=== PATIENT | female | born 1960 | race Caucasian/White ===

== ENCOUNTER 2021-11-24 13:48 | Inpatient (IN) | payer SELFPAY ==
[2021-11-24] VITALS (9 sets, daily range): BP systolic 114–161; BP diastolic 63–92; PULSE 79–94; RESP 16–26; TEMP 36.1–36.9; O2SAT 92–98; BMI 27.1
--- NOTE | ~2021-11-24 | CT_ITS ---
EXAMINATION: CTA chest PE protocol DATE: 11/26/2021 12:54 INDICATION: Shortness of breath TECHNIQUE: Computed tomography angiography (CTA) of the chest was performed with 100 mL Omnipaque-350 intravenous contrast timed to evaluate the pulmonary arteries. Coronal maximum intensity projection 3D-reconstructions were created by the technologist. The dose-length product (DLP) was 307.75 mGy-cm. Automated exposure control and iterative reconstruction technique were employed. COMPARISON: 11/24/2021 FINDINGS: The pulmonary arteries are well-opacified. No pulmonary embolism is identified. There is a small right pleural effusion and a small to moderate-sized left pleural effusion. Patchy airspace opa cities are present in the right lower lobe. There is minimal passive atelectasis in the left lung bas e. A stable 12 mm nodule is present in the right upper lobe. There is no pneumothorax. No pathologica lly enlarged thoracic lymph nodes are identified. The heart size is normal. There is a small sliding hiatal hernia. There is mild thoracic spondylosis. IMPRESSION: 1. No pulmonary embolus identified. 2. Small right and moderate-sized left pleural effusions. 3. Right lower lobe airspace opacity, consistent with pneumonia. 4. Indeterminate right upper lobe nodule. Follow-up CT in three months is recommended. Reviewed, dictated and finalized at location A. IMPRESSION: 1. No pulmonary embolus identified. 2. Small right and moderate-sized left pleural effusions. 3. Right lower lobe airspace opacity, consistent with pneumonia. 4. Indeterminate right upper lobe nodule. Follow-up CT in three months is recom mended.
--- NOTE | ~2021-11-24 | XR_ITS ---
[id number] 11/25/2021 12:18 Indication: Post thoracentesis. Procedure: 2 view chest Comparison: 11/24/2021 Findings: Bilateral pleural effusions, left greater than right. Bibasilar airspace disease may repres ent atelectasis or pneumonia. No pneumothorax identified post procedure. No edema. Impression: 1: No pneumothorax post procedure. 2: Bilateral pleural effusions, left greater than right. 3: Bibasilar infiltrates, atelectasis versus pneumonia. Reviewed, dictated and finalized at location B. Impression: 1: No pneumothorax post procedure. 2: Bilateral pleural effusions, left greater than right. 3: Bibasilar infiltrates, atelectasis versus pneumonia.
--- NOTE | ~2021-11-24 | US_ITS ---
EXAMINATION: US thoracentesis DATE: 11/25/2021 12:25 INDICATION: pleural effusions TECHNIQUE: The procedure and its risks and benefits were discussed with the patient. Potential risks discussed included bleeding, infection, and pneumothorax. The patient understood the risks and agreed to proceed. The skin overlying the posterior inferior right hemithorax was prepped and draped in meryl rile fashion. 1% lidocaine was used for local anesthesia. Under ultrasound guidance, a 5 Fr catheter with trochar was advanced into the right pleural effusion. Fluid was aspirated. The catheter was deanne haile, and a dressing was applied. There were no immediate complications. FINDINGS: Ultrasound images demonstrate a small right pleural effusion and the catheter within the fluid. IMPRESSION: 1. Successful ultrasound-guided thoracentesis yielding 1000 mL of clear yellow fluid. Reviewed, dictated and finalized at location A.
--- NOTE | ~2021-11-24 | XR_ITS ---
XR chest 1V portable 11/24/2021 14:34 Indication: Shortness of breath Procedure: AP portable chest Comparison: No prior studies for comparison. Findings: Moderate bilateral pleural effusions. Bibasilar airspace disease may represent edema or pne umonia. No pneumothorax. No acute osseous abnormality. Impression: 1: Bibasilar airspace disease, edema versus pneumonia. 2: Moderate pleural effusions. Reviewed, dictated and finalized at location B. Impression: 1: Bibasilar airspace disease, edema versus pneumonia. 2: Moderate pleural effusions.
--- NOTE | ~2021-11-24 | CT_ITS ---
EXAMINATION:CT diagnostic chest wo con DATE: 11/24/2021 15:13 INDICATION: Shortness of breath. TECHNIQUE: Computed tomography (CT) of the chest was performed without intravenous contrast. Automate d exposure control and iterative reconstruction technique were employed. The dose-length product (DLP ) was 973.85 mGy-cm. COMPARISON: Chest single view 11/24/2021 FINDINGS: There is mild emphysema. There is mild scarring at the lung apices. There are moderate-size d pleural effusions. There are airspace opacities in the inferior lungs. There is a 12 mm nodule in r ight upper lobe. There are a few scattered lung nodules measuring up to 4 mm. The heart size is cricket l. No pericardial effusion. There is a small sliding hiatal hernia. Delayed bilateral rib fractures. There is mild thoracic spondylosis. IMPRESSION: 1. 12 mm pulmonary nodule, which may be infection or malignancy. Noncontrast low-dose chest CT is rec ommended in 3 months. 2. Moderate-sized pleural effusions. 3. Mild emphysema. 4. Small sliding hiatal hernia. Reviewed, dictated and finalized at location A. IMPRESSION: 1. 12 mm pulmonary nodule, which may be infection or malignancy. Noncontrast lo w-dose chest CT is recommended in 3 months. 2. Moderate-sized pleural effusions. 3. Mild emphysema. 4. Small sliding hiatal hernia.
--- NOTE | ~2021-11-24 | XR_ITS ---
EXAMINATION: XR chest 2V DATE: 11/26/2021 08:49 INDICATION: Bilateral pleural effusions TECHNIQUE: PA and lateral views of the chest are obtained. COMPARISON: 11/24/2021 FINDINGS: Small pleural effusions persist with interval decrease on the right postthoracentesis. Ther e are airspace opacities of the lung bases. No pneumothorax is identified. The cardiomediastinal silh ouette is normal. The visualized osseous structures are unremarkable. IMPRESSION: 1. Small pleural effusions with decrease on the right postthoracentesis. 2. Airspace opacities of the lung bases, likely atelectasis. Reviewed, dictated and finalized at location A.
--- NOTE | 2021-11-24 14:19 | ECG_ITS ---
Measurements Intervals [place] Rate: 82 P: 6 ME: 134 QRS: 40 QRSD: 72 T: 31 QT: 360 QTc: 422 Interpretive Statements SINUS RHYTHM NORMAL ECG NO PREVIOUS ECG AVAILABLE FOR COMPARISON Electronically Signed On 11-25-2021 8:45:05 CDT by Sarthak Kingston M.D.
--- NOTE | 2021-11-24 14:28 | ED.SOB ---
HPI - SOB/Dyspnea General Chief Complaint: Shortness of Breath/Dyspnea Stated Complaint: Shortness of Breath Time Seen by Provider: 11/24/21 13:55 Source: RN notes reviewed History of Present Illness HPI Narrative: Patient presents emergency room from home for shortness of breath. Patient states he has been feeling short of breath for the past 2 days with increasing symptoms states has been associated with a cough this been nonproductive. She denies any fevers or chills chest pain abdominal pain nausea vomiting or any other symptoms. Patient states she does have a history of tobacco use and does smoke daily Related Data Allergies Allergy/AdvReac Type Severity Reaction Status Date / Time No Known Allergies Allergy Verified 11/24/21 14:10 Review of Systems Review of Systems: Gen.: Denies fevers or chills Eyes: Denies eye pain or visual change ENT: Denies congestion Respiratory: See HPI CV: Denies chest pain or palpitations GI: Denies abdominal pain nausea, emesis or diarrhea Musculoskeletal: Denies back pain or muscle pain Neuro: Denies numbness, tingling, weakness or focal weakness Skin: Denies rash Except as documented, all other systems reviewed and negative [facility] Past Medical History Medical History (Updated 11/24/21 @ 15:45 by Nitesh Land DO) Patient denies significant medical history Social History Social History (Updated 11/24/21 @ 15:43 by Nitesh Land DO) Smoking status: Current every day smoker Exam Narrative: APPEARANCE: No acute distress, nontoxic, resting in bed EYES: EOMI HEENT: Normocephalic, atraumatic, OMM RESPIRATORY: No respiratory distress wheezing throughout the bilateral lung [place] with decreased breath sounds in the bases CARDIOVASCULAR: Regular rate and rhythm without murmurs rubs or gallops. ABDOMINAL: Soft, nontender, nondistended, no rebound or guarding MUSCULOSKELETAl: Moves all extremities. No clubbing, cyanosis or edema. NEURO: Awake and alert. Following commands, speech normal, no focal deficits SKIN:: Warm, dry. No rashes lesions or abrasions PSYCHIATRIC: Normal affect/mood, Course Course Emergency Course: Discussed with ANASTASIYA Olson for Dr. Khan presentation and work-up. Agrees with admission at this time Discussed with patient and family results of workup and diagnosis. Discussed need for admission. Patient and family understand and agree to current treatment plan discussed with patient CT showing pulmonary nodule with need for follow-up as well as pleural effusions Vital Signs Vital signs: Vital Signs Temperature 98.5 F 11/24/21 13:59 Pulse Rate 92 11/24/21 13:59 Respiratory Rate 26 H 11/24/21 13:59 Blood Pressure 148/92 H 11/24/21 13:59 Pulse Oximetry 97 11/24/21 13:59 Oxygen Delivery Room Air 11/24/21 13:59 Temperature 98.5 F 11/24/21 13:59 Pulse Rate 93 11/24/21 15:19 Respiratory Rate 24 H 11/24/21 15:19 Blood Pressure 161/75 H 11/24/21 15:19 Pulse Oximetry 97 11/24/21 15:19 Oxygen Delivery Room Air 11/24/21 14:06 MDM - SOB/Dyspnea Lab Data Result diagrams: 11/24/21 14:24 11/24/21 14:24 Labs: Lab Results 11/24/21 11/24/21 11/24/21 Range/Units 14:24 14:24 14:24 WBC 6.6 (4.5-10.0) K/mm3 RBC 4.39 (4.2-5.4) M/mm3 Hgb 11.4 L (12.0-15.0) g/dL Hct 36.1 L (37.0-47.0) % MCV 82.2 (80-100) fl MCH 26.0 (26-34) pg MCHC 31.6 L (32-36) g/dl RDW 13.5 (11.5-14.5) % Plt Count 348 (150-375) k/mm3 MPV 9.4 (7.4-10.4) fl Immature Gran % (Auto) 0.3 (0-0.5) % Neut % (Auto) 68.4 (45.5-73.1) % Lymph % (Auto) 12.6 L (18.3-44.2) % [place] % (Auto) 10.2 H (2.6-8.5) % Eos % (Auto) 7.7 H (0-4.4) % Baso % (Auto) 0.8 (0.2-1.2) % Lymph # (Auto) 0.83 L (0.9-3.2) K/mm3 [place] # (Auto) 0.7 H (0.1-0.6) K/mm3 Eos # (Auto) 0.5 H (0-0.3) K/mm3 Baso # (Auto) 0.1 (0.0-0.1) K/mm3 Abs Immat Gran (auto) 0.02
[2021-11-24] MEDS: ALBUTEROL SULFATE NEB 2.5 MG/3 ML INH 5 MG INHALATION ×2 (14:30→20:13)
[2021-11-24] MEDS: IPRATROPIUM BR 0.02% INH SOLN 0.5 MG/2.5 ML VIAL INHALATION ×2 (14:30→20:13)
[2021-11-24 14:32] LABS: Basophils Absolute Auto 0.1 K/mm3 (0.0-0.1); Basophils Percent Auto 0.8 % (0.2-1.2); Eosinophils Absolute Auto 0.5 K/mm3 (0-0.3); Eosinophils Percent Auto 7.7 % (0-4.4); Hematocrit 36.1 % (37.0-47.0); Hemoglobin 11.4 g/dL (12.0-15.0); Immature Granulocyte Absolute 0.02 K/mm3 (0.00-0.031); Immature Granulocyte Percent A 0.3 % (0-0.5); Lymphocytes Absolute Auto 0.83 K/mm3 (0.9-3.2); Lymphocytes Percent Auto 12.6 % (18.3-44.2); Mean Corpuscular HGB Conc 31.6 g/dl (32-36); Mean Corpuscular Volume 82.2 fl (80-100); Mean Platelet Volume 9.4 fl (7.4-10.4); Monocytes Absolute Auto 0.7 K/mm3 (0.1-0.6); Monocytes Percent Auto 10.2 % (2.6-8.5); Neutrophils Absolute Auto 4.5 K/mm3 (1.3-6.7); Neutrophils Percent Auto 68.4 % (45.5-73.1); Platelet Count Result 348 k/mm3 (150-375); Red Blood Count 4.39 M/mm3 (4.2-5.4); Red Cell Distribution Width 13.5 % (11.5-14.5); White Blood Count 6.6 K/mm3 (4.5-10.0)
[2021-11-24] MEDS: methylPREDNISolone SOD SUCC 125 MG VIAL IV PUSH (14:33)
[2021-11-24 14:43] LABS: INR 1.2; Prothrombin Time 14.4 Seconds (11.1-14.7)
[2021-11-24 14:44] LABS: Alanine Aminotransferase 12 U/L (6-35); Albumin Level 3.6 g/dL (3.5-5.1); Alkaline Phosphatase 121 U/L (38-126); Anion Gap 9 mmol/L (8-16); Aspartate Amino Transferase 19 U/L (14-36); Bilirubin,Total 0.4 mg/dL (0.2-1.3); Blood Urea Nitrogen 13 mg/dL (7-17); Calcium 8.7 mg/dL (8.4-10.2); Carbon Dioxide 26 mmol/L (22-30); Chloride 100 mmol/L (98-107); Estimated CRCL calculation 72 ml/min; Estimated Glomerular Filt Rate > 60; Glucose 134 mg/dL (65-110); Partial Thromboplastin Time 33.7 SECONDS (22.3-36.8); Potassium 3.3 mmol/L (3.4-5.0); Sodium 135 mmol/L (137-145)
[2021-11-24 14:56] LABS: NT Pro B Type Natriuretic Pept 154 pg/mL (5-100); Troponin I < 0.012 ng/mL (0.000-0.034)
[2021-11-24 15:10] LABS: SARS-CoV-2 RNA PCR Negative
[2021-11-24] MEDS: POTASSIUM CHLORIDE 20 MEQ TABLET PO (15:17)
--- NOTE | 2021-11-24 16:27 | PM.IMHP ---
H&P: HPI History of Present Illness Date/Time: 11/24/21 16:27 Chief Complaint: SHORTNESS OF BREATH Narrative: THIS IS A 61-YEAR-OLD FEMALE PATIENT WHO CAME TO THE EMERGENCY ROOM WITH COMPLAINTS OF SHORTNESS OF BREATH. THE PATIENT STATED SHE HAS BEEN FEELING SHORT OF BREATH FOR THE LAST 2 DAYS. SHE DENIES ANY FEVER CHILLS. THE PATIENT IS A SMOKER AND STILL CONTINUES TO SMOKE APPROXIMATELY One pack of CIGARETTES A DAY. SHE DENIES ANY FEVER OR CHILLS OR ANY NAUSEA VOMITING OR DIARRHEA. H&H is 11.4 and 36.1. Sodium is 135 and potassium is 3.3. COVID is negative. Chest x-ray was read as the following: Bibasilar airspace disease, edema versus pneumonia. 2:? Moderate pleural effusions. chest CT was read as the following 1. 12 mm pulmonary nodule, which may be infection or malignancy. Noncontrast low-dose chest CT is recommended in 3 months. 2. Moderate-sized pleural effusions. 3. Mild emphysema. 4. Small sliding hiatal hernia. the patient was given Solu-Medrol, neb treatment potassium azithromycin Rocephin. The patient is on room air and she stated she started to feel better what she got a nebulizer treatment. The patient is being admitted to observation status on the date of service of 11/24/2021. Review of Systems Review of Systems: See history of present illness All systems reviewed & are unremarkable except as noted in HPI and below Constitutional: Constitutional: Reports as per HPI and Reports no additional constitutional complaints Eyes: Eyes: Reports as per HPI and Reports no additional eye complaints ENT: Reports system reviewed and no additional complaints, except as documented and Reports Normal hearing present Cardiovascular: Cardiovascular: Reports no additional cardiovascular complaints Respiratory: Respiratory: Reports no additional respiratory complaints and Reports no additional respiratory complaints Gastrointestinal: Gastrointestinal: Reports as per HPI and Reports no additional gastrointestinal complaints Musculoskeletal: Musculoskeletal: Reports no additional musculoskeletal complaints Integumentary/Breasts: Skin/Breast: Reports system reviewed and no additional complaints, except as docu and Reports as per HPI Neurologic: Reports system reviewed and no additional complaints, except as documented, Reports as per HPI and Reports Normal hearing present Psychiatric: Psychiatric: Reports no additional psychiatric complaints and Reports as per HPI Endocrine: Endocrine: Reports no additional endocrine complaints Hematologic/Lymphatic: Hematologic/Lymphatic: Reports no additional hematologic/lymphatic complaints Allergic/Immunologic: Allergic/Immunologic: Reports no additional allergic/immunologic complaints [facility] Past Medical History Medical History (Updated 11/24/21 @ 20:56 by Whitney Galaviz NP) Patient denies significant medical history Tobacco abuse Surgical History Surgical History (Updated 11/24/21 @ 16:29 by Whitney Galaviz NP) H/O tubal ligation Family History Family History Mother Hypertension Carcinoma of colon Father Acute myocardial infarction Sibling Cancer Social History Social History (Updated 11/24/21 @ 20:21 by Whitney Galaviz NP) Social History: the patient has 3 childrenc. her son lives with her. she is single and works for [employer]. she was smoking a pack per day. She does not have a living will or durable power estate attorney for healthcare. She denies any alcohol marijuana or drugs. Code status full code Smoking packs per day: 1 Smoking cigarettes per day: 20.0 Smoking status: Current every day smoker Tobacco type: cigarettes Alcohol intake: never Substance use: never Spiritual care concerns: No Meds Home Medications and Allergies Home Medications Medication Instructions Recorded Confirmed Type No Home Medications 11/24/21 11/24/21 History
[2021-11-24] MEDS: methylPREDNISolone SOD SUCC 125 MG VIAL 60 MG IV PUSH (21:17)
[2021-11-25] VITALS (13 sets, daily range): BP systolic 131–148; BP diastolic 63–89; PULSE 77–106; RESP 16–18; TEMP 36.2–36.9; O2SAT 92–98
[2021-11-25] MEDS: IPRATROPIUM BR 0.02% INH SOLN 0.5 MG/2.5 ML VIAL INHALATION ×4 (02:04→20:12)
[2021-11-25] MEDS: ALBUTEROL SULFATE NEB 2.5 MG/3 ML INH 5 MG INHALATION ×4 (02:04→20:13)
[2021-11-25] MEDS: methylPREDNISolone SOD SUCC 125 MG VIAL 60 MG IV PUSH ×2 (05:02→14:56)
[2021-11-25 06:26] LABS: Basophils Percent Auto 0.1 % (0.2-1.2); Hematocrit 34.8 % (37.0-47.0); Hemoglobin 11.1 g/dL (12.0-15.0); Immature Granulocyte Absolute 0.02 K/mm3 (0.00-0.031); Immature Granulocyte Percent A 0.3 % (0-0.5); Lymphocytes Absolute Auto 0.46 K/mm3 (0.9-3.2); Lymphocytes Percent Auto 6.3 % (18.3-44.2); Mean Corpuscular HGB Conc 31.9 g/dl (32-36); Mean Corpuscular Hemoglobin 26.2 pg (26-34); Mean Corpuscular Volume 82.1 fl (80-100); Mean Platelet Volume 9.7 fl (7.4-10.4); Monocytes Absolute Auto 0.1 K/mm3 (0.1-0.6); Monocytes Percent Auto 1.9 % (2.6-8.5); Neutrophils Absolute Auto 6.7 K/mm3 (1.3-6.7); Neutrophils Percent Auto 91.4 % (45.5-73.1); Platelet Count Result 373 k/mm3 (150-375); Red Blood Count 4.24 M/mm3 (4.2-5.4); Red Cell Distribution Width 13.5 % (11.5-14.5); White Blood Count 7.3 K/mm3 (4.5-10.0)
[2021-11-25 06:33] LABS: Lactic Acid Reflex 1.6 mmol/L (0.7-2.0)
[2021-11-25 06:34] LABS: Alanine Aminotransferase 13 U/L (6-35); Albumin Level 3.3 g/dL (3.5-5.1); Alkaline Phosphatase 97 U/L (38-126); Anion Gap 8 mmol/L (8-16); Aspartate Amino Transferase 14 U/L (14-36); Bilirubin,Total 0.2 mg/dL (0.2-1.3); Blood Urea Nitrogen 11 mg/dL (7-17); Carbon Dioxide 27 mmol/L (22-30); Chloride 103 mmol/L (98-107); Estimated CRCL calculation 83 ml/min; Estimated Glomerular Filt Rate > 60; Glucose 185 mg/dL (65-110); Lactate Dehydrogenase 138 U/L (120-246); Magnesium 2.2 mg/dL (1.6-2.3); Potassium 3.6 mmol/L (3.4-5.0); Sodium 138 mmol/L (137-145)
[2021-11-25 13:54] LABS: pH Pleural Fluid 7.024 (7.210-7.500)
[2021-11-25 14:24] LABS: Lymphocytes Pleural Fluid 22 %; Mesothelial Cells Pleural Flui 6 %; Monocytes Pleural Fluid 15 %; Neutrophils Pleural Fluid 48 % (0-25)
[2021-11-25 14:26] LABS: Other Cells Pleural Fluid 9 %
[2021-11-25 14:29] LABS: Pleural fluid source Pleural fluid
[2021-11-25 14:30] LABS: Appearance Pleural Fluid Hazy (Clear); Color Pleural Fluid Yellow (Colorless); Nucleated Cell Pleural Fluid 2772 /uL (0-1000); RBC Pleural Fluid 903 /uL (0-0)
--- NOTE | 2021-11-25 15:55 | PM.IMPN ---
Progress Note: A&P Assessment and Plan (1) Community acquired pneumonia: Code(s): J18.9 - Pneumonia, unspecified organism Status: Acute Assessment and Plan: Presented with shortness of breath. CXR on presentation showed bibasilar airspace disease follow-up chest CT 12 mm nodule which may be related to infection continue with IV ceftriaxone and azithromycin supportive care. Bronchodilators, expectorants incentive spirometry COVID-19 negative will check influenza (2) COPD exacerbation: Code(s): J44.1 - Chronic obstructive pulmonary disease with (acute) exacerbation Status: Acute Assessment and Plan: patient had wheezing on presentation. No formal diagnosis of COPD, however emphysematous changes noted on CT continue IV Solu-Medrol. Wean to 40 mg q12h albuterol and ipratropium nebs q6h (3) Bilateral pleural effusion: Code(s): J90 - Pleural effusion, not elsewhere classified Status: Acute Assessment and Plan: CT demonstrated moderate-sized bilateral pleural effusions patient is status post diagnostic thoracentesis yielding 1000 mL clear yellow fluid awaiting laboratory evaluation of pleural fluid (4) Pulmonary nodule: Code(s): R91.1 - Solitary pulmonary nodule Status: Acute Assessment and Plan: CT of the chest showed 12 mm pulmonary nodule which may be due to infection vs malignancy recommendations for outpatient noncontrast low-dose chest CT recommended in 3 months patient will need to establish with a primary care provider for appropriate outpatient follow-up and would likely benefit from outpatient pulmonology referral. (5) Tobacco abuse: Code(s): Z72.0 - Tobacco use Status: Acute Assessment and Plan: Patient smokes 1 pack per day smoking cessation is encouraged Subjective Date/time seen: 11/25/21 15:55 Interval history: date of service: 11/25/2021 Benita Ballesteros is 61-year-old female with a history of tobacco abuse who is seen in follow-up for COPD exacerbation and pleural effusion. She is s/p thoracentesis this afternoon and feels much better following this. at this time she has no shortness of breath. She denies wheezing. she endorses cough productive of clear sputum. Denies chest pain, palpitations, nausea, vomiting, abdominal pain. she initially requested to sign out against medical advise because she was feeling much better and felt that she needed to get to work tomorrow, however has decided that she would like to stay and continue with treatment. Review of Systems Review of Systems: All systems reviewed & are unremarkable except as noted in HPI and below Exam Narrative: General: well-nourished, well-appearing 61-year-old female, sitting up in bed, comfortable, NARD Neuro: awake, alert and oriented x4, speech clear, no focal neuro deficits noted HEENMT: normocephalic, atraumatic, EOMI, sclerae anicteric, moist oral mucosa Respiratory: clear to auscultation bilaterally, nonlabored breathing Cardio: regular rate, regular rhythm with S1-S2 Abdomen: nondistended, normoactive bowel sounds, soft, nontender to palpation Extremities: no edema, erythema, or tenderness to palpation Skin: no rashes or lesions, warm and dry Psych: appropriate mood and affect, judgment and insight intact Objective Data Vital Signs Vital Signs: Vital Signs - 24 hr 11/24/21 17:13 11/24/21 17:59 11/24/21 20:17 Temperature 97.0 F L Pulse Rate 88 94 79 Respiratory Rate 18 20 16 Blood Pressure 151/82 H 143/90 H Pulse Oximetry 96 93 Oxygen Delivery 11/24/21 20:17 11/24/21 20:26 11/24/21 20:00 Temperature Pulse Rate 81 Respiratory Rate 16 Blood Pressure Pulse Oximetry 94 Oxygen Delivery Room Air Room Air 11/24/21 22:00 11/25/21 02:06 11/25/21 02:15 Temperature 97.5 F L Pulse Rate 85 79 77 Respiratory Rate 17 16 16 Blood Pressure 114/63
[2021-11-25 18:45] LABS: Influenza Control Positive
[2021-11-25] MEDS: methylPREDNISolone SOD SUCC 40 MG VIAL IV PUSH (20:30)
[2021-11-25] MEDS: guaiFENesin 12 HR 600 MG TABCR PO (20:31)
[2021-11-26] VITALS (9 sets, daily range): BP systolic 128–134; BP diastolic 66–75; PULSE 62–89; RESP 16–18; TEMP 36.1–36.4; O2SAT 94–97
--- NOTE | 2021-11-26 | ECHO_ITS ---
Patient Info Name: Benita Ballesteros Age: 61 years : 1960 Gender: Female Ht: 68 in Wt: 178 lbs BSA: 1.98 m2 HR: 99 bpm BP: 128 / 72 mmHg Technical Quality: Good Exam Date: 11/26/2021 10:16 AM Exam Location: [facility] Patient Status: Inpatient Admit Date: 11/24/2021 Staff Ordering Physician: Tiffany Sandoval PA-C Head Operator Sulfide: Abdoulaye Avila RDCS, RT Attending Provider: Tiffany Sandoval PA-C Referring Physician: Jaime WALL; Exam Type: CA echo doppler color flow Study Info Indications J90 - Pleural effusion, not elsewhere classified Complete two-dimensional, color flow and Doppler transthoracic echocardiogram is performed. Summary 1. Complete two-dimensional, color flow and Doppler transthoracic echocardiogram is performed. 2. Left ventricular chamber dimension is normal. 3. Left ventricular systolic function is normal, estimated at 65-70%. 4. The left ventricular diastolic function is grade I diastolic dysfunction. 5. E/e' 10 is mildly elevated. 6. Global longitudinal strain is normal at -20.8%. 7. There is mild aortic valve sclerosis. 8. No pulmonary hypertension, estimated pulmonary arterial systolic pressure is 33 mmHg. Left Ventricle Global longitudinal strain is normal at -20.8%. E/e' 10 is mildly elevated. Left ventricular chamber dimension is normal. Left ventricular systolic function is normal, estimated at 65-70%. The left ventricular diastolic function is grade I diastolic dysfunction. Right Ventricle Right ventricular chamber dimension is normal. Right ventricular systolic function is normal. Left Atria Left atrial chamber dimension is normal. Right Atria Right atrial chamber dimension is normal. Aortic Valve The aortic valve is trileaflet. There is mild aortic valve sclerosis. There is no aortic valve stenosis. There is no aortic valve regurgitation. Pulmonic Valve There is no pulmonic regurgitation. Mitral Valve There is no mitral valve stenosis. There is no mitral valve regurgitation. Tricuspid Valve There is no tricuspid valve regurgitation. No pulmonary hypertension, estimated pulmonary arterial systolic pressure is 33 mmHg. Pericardium/Pleural There is no pericardial effusion. Inferior Vena Cava Normal inferior vena cava with >50% collapse upon inspiration consistent with normal right atrial pressure, 5 mmHg. Aorta The aortic root size at the sinus of Valsalva is normal. Left Ventricular Outflow Tract Name Value Normal LVOT 2D LVOT Diameter 2.0 cm LVOT Doppler LVOT Peak Gradient 9 mmHg LVOT Mean Gradient 5 mmHg LVOT VTI 28 cm LVOT VTI/AV VTI Ratio 0.9 LVOT Stroke Volume 90 ml LVOT CO 9.3 l/min LVOT CI 4.8 l/min/m2 Mitral Valve Name Value Normal
[2021-11-26] MEDS: IPRATROPIUM BR 0.02% INH SOLN 0.5 MG/2.5 ML VIAL INHALATION ×2 (02:13→07:48)
[2021-11-26] MEDS: ALBUTEROL SULFATE NEB 2.5 MG/3 ML INH 5 MG INHALATION ×2 (02:13→07:48)
[2021-11-26 06:44] LABS: Mean Corpuscular HGB Conc 32.4 g/dl (32-36); Mean Corpuscular Hemoglobin 26.8 pg (26-34); Mean Corpuscular Volume 82.7 fl (80-100); Mean Platelet Volume 9.9 fl (7.4-10.4); Platelet Count Result 431 k/mm3 (150-375); Red Blood Count 4.11 M/mm3 (4.2-5.4); Red Cell Distribution Width 13.8 % (11.5-14.5); White Blood Count 12.5 K/mm3 (4.5-10.0)
[2021-11-26 06:59] LABS: Anion Gap 8 mmol/L (8-16); Blood Urea Nitrogen 16 mg/dL (7-17); Calcium 8.9 mg/dL (8.4-10.2); Carbon Dioxide 28 mmol/L (22-30); Chloride 102 mmol/L (98-107); Estimated CRCL calculation 72 ml/min; Estimated Glomerular Filt Rate > 60; Glucose 145 mg/dL (65-110); Potassium 3.7 mmol/L (3.4-5.0); Sodium 138 mmol/L (137-145)
[2021-11-26 10:00] LABS: NT Pro B Type Natriuretic Pept 723 pg/mL (5-100)
[2021-11-26] MEDS: methylPREDNISolone SOD SUCC 40 MG VIAL IV PUSH (10:55)
--- NOTE | 2021-11-26 11:02 | PM.CNPUL ---
Assessment and Plan Assessment and plan (1) COPD exacerbation: Code(s): J44.1 - Chronic obstructive pulmonary disease with (acute) exacerbation Status: Acute Assessment and Plan: Patient is a current smoker with 44 pack year history, mild apical predominant paraseptal emphysema on her CT scan who presented with shortness of breath and wheezing that has responded to steroids, bronchodilators and antibiotics. I believe she has COPD and this represents a COPD exacerbation. 11/26: Patient has no wheezing and is currently feeling back to her normal. I will change her Solu-Medrol to prednisone 40 mg p.o. q.day. I will discontinue her nebulizers and change her to a long-acting beta agonist -long-acting muscarinic antagonist and have ordered Anoro Ellipta. Patient is currently on room air with normal saturations. I will check an overnight oximetry tonight to ensure adequate oxygenation at night. Patient's serum bicarbonate is 26-28 suggesting there is no chronic hypercarbic respiratory failure. Patient is being treated for possible pneumonia with ceftriaxone and azithromycin which were started on 11/24. Will continue these while she is in the hospital. (2) Bilateral pleural effusion: Code(s): J90 - Pleural effusion, not elsewhere classified Status: Acute Assessment and Plan: on 11/25/2021 the patient was improved and had a right thoracentesis with 100o mL of clear yellow fluid removed. G stain showed white blood cells with no organisms seen. PH was 7.024, nucleated cells was 2772 with a differential of neutrophils 48%, lymphocytes 22, monocytes 15, mesothelial cells 6 and other 9%. Remainder of chemistries are pending. The patient tells me she was much improved before the thoracentesis and after the thoracentesis she felt remarkably improved. chest x-ray today demonstrates very small right pleural effusion and small left pleural effusion and there has been no reaccumulation of the right pleural effusion since post thoracentesis on 11/25. Await cytology given her right upper lobe nodule. Etiology the bilateral pleural effusions is unclear. Will obtain echocardiogram. Will obtain D-dimer and if this is positive will obtain CT angiogram of the chest to exclude pulmonary emboli. Thyroid function is normal. Clinically there is no evidence of fluid overload. Creatinine is normal. (3) Pulmonary nodule: Code(s): R91.1 - Solitary pulmonary nodule Status: Acute Assessment and Plan: Patient with a 12 mm right upper lobe pulmonary nodule. Will treat patient for infection. Await cytology of the right pleural effusion. Patient will need a repeat CT scan to follow this nodule. History of Present Illness History of Present Illness Consult date: 11/26/21 Chief complaint: Immune acquired pneumonia/susan pleural effusions/a Narrative: 11/26/2021: This is a new pulmonary consult for COPD exacerbation and bilateral pleural effusions 61-year-old woman with a history of tobacco use on no home medicines presented to the hospital on 11/24/2021 with 5 day history of dyspnea on exertion. The patient denied any rest shortness of breath. Patient denied fever, chills, rigors, diaphoresis, cough, phlegm, or hemoptysis. The patient states she has 1 pillow orthopnea and that has not changed. The patient denies paroxysmal nocturnal dyspnea and has nocturia 2-3 times a night with no changes over the last year. Patient denied swelling but did state she had decreased appetite. In the emergency room the patient had wheezes throughout both lungs and decreased breath sounds in the lung bases. Her room air saturations were 97%. Her white blood cell count was 6.6, creatinine 0.7, eosinophils were 7.7%=508/uL, BNP was 154, TSH was 2.64, COVID RT PCR study was negative. Chest x-ray demonstrated bilateral pleural effusions. CT scan without contrast demonstrated mild apical predominant paraseptal e
[2021-11-26 11:42] LABS: D Dimer 5.68 ug/mL (<0.48)
--- NOTE | 2021-11-26 12:49 | P.PNIM_ITS ---
Progress Note: A&P Assessment and Plan (1) COPD exacerbation: Code(s): J44.1 - Chronic obstructive pulmonary disease with (acute) exacerbation Status: Acute Assessment and Plan: Patient had wheezing on presentation. * No formal diagnosis of COPD, however emphysematous changes noted on CT * Appreciate pulmonology consultation * Has been transitioned to PO prednisone 40 mg daily. * Started on Anoro Ellipta per pulmonology. (2) Bilateral pleural effusion: Code(s): J90 - Pleural effusion, not elsewhere classified Status: Acute Assessment and Plan: CT demonstrated moderate-sized bilateral pleural effusions * patient is status post diagnostic thoracentesis on 11/25 yielding 1000 mL clear yellow fluid * preliminary pleural fluid results reviewed with low pH (7.024), elevated nucleated cell count and increased neutrophils (48%). Additional studies p ending * Gram stain with no organisms. Culture and pathology pending. * repeat CXR today with no evidence of reaccumulation of right pleural effusion * echo pending for further evaluation of pleural effusion etiology. BNP 723 which is normal for age. * CTA pending * awaiting laboratory evaluation of pleural fluid (3) Community acquired pneumonia: Code(s): J18.9 - Pneumonia, unspecified organism Status: Acute Assessment and Plan: Presented with shortness of breath. * CXR on presentation showed bibasilar airspace disease * Chest CT with 12 mm nodule which may be related to infection vs malignancy * continue with IV ceftriaxone and azithromycin * supportive care. Bronchodilators, expectorants incentive spirometry * COVID-19 and influenza negative (4) Pulmonary nodule: Code(s): R91.1 - Solitary pulmonary nodule Status: Acute Assessment and Plan: CT of the chest showed 12 mm pulmonary nodule which may be due to infection vs malignancy * recommendations for outpatient noncontrast low-dose chest CT recommended in 3 months * patient will need to establish with a primary care provider for appropriate outpatient follow-up * await pathology of pleural fluid (5) Tobacco abuse: Code(s): Z72.0 - Tobacco use Status: Acute Assessment and Plan: Patient smokes 1 pack per day * smoking cessation is encouraged * declines need for nicotine patch Subjective Date/time seen: 11/26/21 12:49 Interval history: date of service: 11/26/2021 Benita Ballesteros is 61-year-old female with a history of tobacco abuse who is seen in follow-up for pleural effusion and COPD exacerbation. She feels well today. She has no complaints and she feels back to her usual state of health. Denies shortness of breath, cough, wheezing. No chest pain or palpitations. Denies fevers, chills, dizziness, lightheadedness. Denies abdominal pain. Appetite is good. Review of Systems Review of Systems: All systems reviewed & are unremarkable except as noted in HPI and below Exam Narrative: General: well-nourished, well-appearing 61-year-old female, sitting up in bed, comfortable, NARD Neuro: awake, alert and oriented x4, speech clear, no focal neuro deficits noted HEENMT: normocephalic, atraumatic, EOMI, sclerae anicteric, moist oral mucosa Respiratory: clear to auscultation bilaterally, nonlabored breathing Cardio: regular rate, regular rhythm with S1-S2 Abdomen: nondistended, normoactive bowel sounds, soft, nontender to palpation Extremities: no edema, erythema, or tende
--- NOTE | 2021-11-26 12:49 | PM.IMPN ---
Progress Note: A&P Assessment and Plan (1) COPD exacerbation: Code(s): J44.1 - Chronic obstructive pulmonary disease with (acute) exacerbation Status: Acute Assessment and Plan: Patient had wheezing on presentation. No formal diagnosis of COPD, however emphysematous changes noted on CT Appreciate pulmonology consultation Has been transitioned to PO prednisone 40 mg daily. Started on Anoro Ellipta per pulmonology. (2) Bilateral pleural effusion: Code(s): J90 - Pleural effusion, not elsewhere classified Status: Acute Assessment and Plan: CT demonstrated moderate-sized bilateral pleural effusions patient is status post diagnostic thoracentesis on 11/25 yielding 1000 mL clear yellow fluid preliminary pleural fluid results reviewed with low pH (7.024), elevated nucleated cell count and increased neutrophils (48%). Additional studies pending Gram stain with no organisms. Culture and pathology pending. repeat CXR today with no evidence of reaccumulation of right pleural effusion echo pending for further evaluation of pleural effusion etiology. BNP 723 which is normal for age. CTA pending awaiting laboratory evaluation of pleural fluid (3) Community acquired pneumonia: Code(s): J18.9 - Pneumonia, unspecified organism Status: Acute Assessment and Plan: Presented with shortness of breath. CXR on presentation showed bibasilar airspace disease Chest CT with 12 mm nodule which may be related to infection vs malignancy continue with IV ceftriaxone and azithromycin supportive care. Bronchodilators, expectorants incentive spirometry COVID-19 and influenza negative (4) Pulmonary nodule: Code(s): R91.1 - Solitary pulmonary nodule Status: Acute Assessment and Plan: CT of the chest showed 12 mm pulmonary nodule which may be due to infection vs malignancy recommendations for outpatient noncontrast low-dose chest CT recommended in 3 months patient will need to establish with a primary care provider for appropriate outpatient follow-up await pathology of pleural fluid (5) Tobacco abuse: Code(s): Z72.0 - Tobacco use Status: Acute Assessment and Plan: Patient smokes 1 pack per day smoking cessation is encouraged declines need for nicotine patch Subjective Date/time seen: 11/26/21 12:49 Interval history: date of service: 11/26/2021 Benita Ballesteros is 61-year-old female with a history of tobacco abuse who is seen in follow-up for pleural effusion and COPD exacerbation. She feels well today. She has no complaints and she feels back to her usual state of health. Denies shortness of breath, cough, wheezing. No chest pain or palpitations. Denies fevers, chills, dizziness, lightheadedness. Denies abdominal pain. Appetite is good. Review of Systems Review of Systems: All systems reviewed & are unremarkable except as noted in HPI and below Exam Narrative: General: well-nourished, well-appearing 61-year-old female, sitting up in bed, comfortable, NARD Neuro: awake, alert and oriented x4, speech clear, no focal neuro deficits noted HEENMT: normocephalic, atraumatic, EOMI, sclerae anicteric, moist oral mucosa Respiratory: clear to auscultation bilaterally, nonlabored breathing Cardio: regular rate, regular rhythm with S1-S2 Abdomen: nondistended, normoactive bowel sounds, soft, nontender to palpation Extremities: no edema, erythema, or tenderness to palpation Skin: no rashes or lesions, warm and dry Psych: appropriate mood and affect, judgment and insight intact Objective Data Vital Signs Vital Signs: Vital Signs - 24 hr 11/25/21 14:00 11/25/21 15:04 11/25/21 15:14 Temperature 97.5 F L Pulse Rate 101 H 96 92 Respiratory Rate 16 16 16 Blood Pressure 141/77 H Pulse Oximetry 94 Oxygen Delivery 11/25/21 20:10 11/25/21 20:10 11/25/21 20:17 Temperature
[2021-11-26] MEDS: predniSONE 20 MG TABLET 40 MG PO (13:03)
[2021-11-26] MEDS: UMECLIDINIUM/VILANTEROL 62.5-25 MCG ELLIPTA 1 PUFF INHALATION (14:18)
[2021-11-27 06:00] VITALS: BP 155/97; PULSE 82; RESP 14; TEMP 36.1; O2SAT 97
[2021-11-27 06:56] LABS: Hematocrit 37.2 % (37.0-47.0); Hemoglobin 11.8 g/dL (12.0-15.0); Mean Corpuscular HGB Conc 31.7 g/dl (32-36); Mean Corpuscular Hemoglobin 26.4 pg (26-34); Mean Corpuscular Volume 83.2 fl (80-100); Mean Platelet Volume 9.8 fl (7.4-10.4); Platelet Count Result 466 k/mm3 (150-375); Red Blood Count 4.47 M/mm3 (4.2-5.4); Red Cell Distribution Width 13.8 % (11.5-14.5); White Blood Count 8.4 K/mm3 (4.5-10.0)
[2021-11-27 07:10] LABS: Anion Gap 8 mmol/L (8-16); Blood Urea Nitrogen 17 mg/dL (7-17); Calcium 9.1 mg/dL (8.4-10.2); Carbon Dioxide 30 mmol/L (22-30); Chloride 100 mmol/L (98-107); Estimated CRCL calculation 64 ml/min; Estimated Glomerular Filt Rate > 60; Glucose 121 mg/dL (65-110); Potassium 3.8 mmol/L (3.4-5.0); Sodium 138 mmol/L (137-145)
[2021-11-27] MEDS: UMECLIDINIUM/VILANTEROL 62.5-25 MCG ELLIPTA 1 PUFF INHALATION (07:56)
[2021-11-27 07:58] VITALS: O2SAT 98
[2021-11-27 08:00] VITALS: PULSE 82; RESP 14; O2SAT 98
[2021-11-27] MEDS: predniSONE 20 MG TABLET 40 MG PO (08:15)
--- NOTE | 2021-11-27 09:13 | PM.PNPUL ---
Progress Note: A&P Assessment and Plan (1) COPD exacerbation: Code(s): J44.1 - Chronic obstructive pulmonary disease with (acute) exacerbation Status: Acute Assessment and Plan: Patient is a current smoker with 44 pack year history, mild apical predominant paraseptal emphysema on her CT scan who presented with shortness of breath and wheezing that has responded to steroids, bronchodilators and antibiotics. I believe she has COPD and this represents a COPD exacerbation. 11/26: Patient has no wheezing and is currently feeling back to her normal. I will change her Solu-Medrol to prednisone 40 mg p.o. q.day. I will discontinue her nebulizers and change her to a long-acting beta agonist -long-acting muscarinic antagonist and have ordered Anoro Ellipta. Patient is currently on room air with normal saturations. I will check an overnight oximetry tonight to ensure adequate oxygenation at night. Patient's serum bicarbonate is 26-28 suggesting there is no chronic hypercarbic respiratory failure. Patient is being treated for possible pneumonia with ceftriaxone and azithromycin which were started on 11/24. Will continue these while she is in the hospital. 11/27 Patient tells me she has 100% back to normal and denies any shortness of breath. Patient has been ambulating in the halls without any shortness of breath. Room air saturations are 97%. I told her is absolutely necessary for her to quit smoking. I told her that tobacco will lead to premature . She understands this. I provided greateer than 12 minutes of tobacco cessation counseling including techniques that minute smoking, behavioral modification of stress to combat the cravings and positive reinforcement for not smoking. The patient appears sincere about her desire to quit and she tells me she will quit cold turkey And not smoke anymore when she goes home. I have also informed her that her son should not exposed to secondhand smoke and that if he smokes he should smoke outside with the door closed behind him. From a pulmonary perspective patient is ready for discharge on these Pulmonary medications: Levaquin 750 mg p.o. q.day x7 days Prednisone 40 mg p.o. x1 day Beta agonist and muscarinic antagonist that she can afford (no insurance) (Anoro Ellipta 62.5/25 at 1 puff Q day, stiolto respimat 2.5/2.5 at 1 puff BID, bevespi aerosphere 9 mcg/4.8 at 2 puffs BID, combivent respimat at 2 puffs Q 4 HR or separate albuterol and atrovent inhalers at 2 puffs Q 4 HR) rescue albuterol 2 puffs q.4 hours p.r.n. shortness of breath or wheezing oxygen at rest and with ambulation per formal home O2 assessment which I have ordered today. Oxygen 2 L at night. Smoking cessation. Follow up in Pulmonary Clinic in 3-4 weeks. I gave her a business card and informed our space scheduler. She will need outpatient PFTs and follow-up CT scan of the chest in 3 months. Discussed with Tiffany Sandoval. (2) Bilateral pleural effusion: Code(s): J90 - Pleural effusion, not elsewhere classified Status: Acute Assessment and Plan: on 11/25/2021 the patient was improved and had a right thoracentesis with 100o mL of clear yellow fluid removed. G stain showed white blood cells with no organisms seen. PH was 7.024, nucleated cells was 2772 with a differential of neutrophils 48%, lymphocytes 22, monocytes 15, mesothelial cells 6 and other 9%. Remainder of chemistries are pending. The patient tells me she was much improved before the thoracentesis and after the thoracentesis she felt remarkably improved. chest x-ray today demonstrates very small right pleural effusion and small left pleural effusion and there has been no reaccumulation of the right pleural effusion since post thoracentesis on 11/25. Await cytology given her right upper lobe nodule. Etiology the bilateral pleural effusions is unclear. Will obtain echocardiogram. Will obtain D-dimer and if this is posi
[2021-11-27 10:17] LABS: Albumin Pleural Fluid 2.5 g/dL
[2021-11-27 10:50] VITALS: PULSE 88; O2SAT 94
[2021-11-27 10:52] VITALS: PULSE 96; O2SAT 93
[2021-11-27 10:53] VITALS: PULSE 105; O2SAT 92
--- NOTE | 2021-11-27 11:15 | HOMEO2EVAL ---
Evaluation was performed at [facility] Home Oxygen Evaluation RC: Home Oxygen (O2) Evaluation Start: 11/27/21 09:12 Freq: ONCE Status: Active Protocol: RPE Activity Type Activity Date Activity User E-sign Co-sign Detail Recorded Client Recorded Date Recorded By Document 11/27/21 10:50 DJO [id number] 11/27/21 11:15 DJO Document 11/27/21 10:52 DJO [id number] 11/27/21 11:15 DJO Document 11/27/21 10:53 [email or web address] [email or web address] 11/27/21 11:15 DJO 11/27/21 11/27/21 11/27/21 10:50 10:52 10:53 Home O2 Evaluation Test Phase Resting Exercise Exercise Oxygen Delivery Room Air Room Air Room Air Pulse Oximetry (90-100 %) 94 93 92 Pulse Rate (60-100 beats/min) 88 96 105 H Activity Tolerance Excellent Excellent Ambulation Distance (feet) 275 Ambulation Distance (meters) 83.81 Treatment Charges O2 Evaluation - Inpatient
--- NOTE | 2021-11-27 11:24 | P.DS_ITS ---
DS: Admitting Diagnosis Discharge Date 11/27/2021 Admitting Diagnosis pleural effusion DS: Discharge Diagnosis Discharge Diagnosis (1) COPD exacerbation: Code(s): J44.1 - Chronic obstructive pulmonary disease with (acute) exacerbation Status: Acute Assessment and Plan: Patient had wheezing on presentation. * No formal diagnosis of COPD, however emphysematous changes noted on CT * Seen in consultation by pulmonology * Treated with IV solumedrol, transitioned to PO prednisone which will be continued on discharge * Started on long acting inhaler per pulmonology * Outpatient pulmonology follow up (2) Bilateral pleural effusion: Code(s): J90 - Pleural effusion, not elsewhere classified Status: Acute Assessment and Plan: CT demonstrated moderate-sized bilateral pleural effusions * underwent diagnostic thoracentesis on 11/25 yielding 1000 mL clear yellow fluid * preliminary pleural fluid results reviewed with low pH (7.024), elevated nucleated cell count and increased neutrophils (48%). Fluid consistent with exudate. * Gram stain with no organisms. Culture and pathology pending, no growth at time of discharge. * repeat CXR with no evidence of reaccumulation of right pleural effusion * echo performed for evaluation of pleural effusion etiology which demonstrated diastolic dysfunction and was started on low dose furosemide for hopeful improvement of pleural effusion. BNP 723 which is normal for age. * CTA negative for PE * Repeat CXR in 3 weeks with pulm follow up (3) Community acquired pneumonia: Code(s): J18.9 - Pneumonia, unspecified organism Status: Acute Assessment and Plan: Presented with shortness of breath. * CXR on presentation showed bibasilar airspace disease * Chest CT with 12 mm nodule which may be related to infection vs malignancy * treated with IV ceftriaxone and azithromycin. Will continue PO levaquin as an outpatient * supportive care provided. Bronchodilators, expectorants incentive spirometry * COVID-19 and influenza negative (4) Pulmonary nodule: Code(s): R91.1 - Solitary pulmonary nodule Status: Acute Assessment and Plan: CT of the chest showed 12 mm pulmonary nodule which may be due to infection vs malignancy * recommendations for outpatient noncontrast low-dose chest CT recommended in 3 months * patient will need to establish with a primary care provider for appropriate outpatient follow-up. Arranged follow up with education rep PCP * pathology of pleural fluid negative for carcinoma (5) Tobacco abuse: Code(s): Z72.0 - Tobacco use Status: Acute Assessment and Plan: Patient smokes 1 pack per day * educated on smoking cessation for 5 minutes * patient is motivated to quit smoking DS: Summary Hospital Course Hospital Course: Date of admission: 11/24/2021 Date of discharge: 11/27/2021 Benita Ballesteros is 61-year-old female with a history of tobacco abuse who presented to the emergency department on 11/24/21 with complaints of shortness of breath ongoing for 2 days with associated nonproductive cough. On presentation to the ED, she was mildly tachypneic with additional vital signs stable, potassium 3.3, troponin negative, CXR with bibasilar airspace disease and moderate pleural effusions, chest CT showed 12 mm pulmonary nodule which may be infection versus malignancy and moderate-sized pleural effusions. She was admitted to the hospitalist service for further evaluation and management and was seen in consult
--- NOTE | 2021-11-27 11:24 | PM.DS ---
DS: Admitting Diagnosis Discharge Date 11/27/2021 Admitting Diagnosis pleural effusion DS: Discharge Diagnosis Discharge Diagnosis (1) COPD exacerbation: Code(s): J44.1 - Chronic obstructive pulmonary disease with (acute) exacerbation Status: Acute Assessment and Plan: Patient had wheezing on presentation. No formal diagnosis of COPD, however emphysematous changes noted on CT Seen in consultation by pulmonology Treated with IV solumedrol, transitioned to PO prednisone which will be continued on discharge Started on long acting inhaler per pulmonology Outpatient pulmonology follow up (2) Bilateral pleural effusion: Code(s): J90 - Pleural effusion, not elsewhere classified Status: Acute Assessment and Plan: CT demonstrated moderate-sized bilateral pleural effusions underwent diagnostic thoracentesis on 11/25 yielding 1000 mL clear yellow fluid preliminary pleural fluid results reviewed with low pH (7.024), elevated nucleated cell count and increased neutrophils (48%). Fluid consistent with exudate. Gram stain with no organisms. Culture and pathology pending, no growth at time of discharge. repeat CXR with no evidence of reaccumulation of right pleural effusion echo performed for evaluation of pleural effusion etiology which demonstrated diastolic dysfunction and was started on low dose furosemide for hopeful improvement of pleural effusion. BNP 723 which is normal for age. CTA negative for PE Repeat CXR in 3 weeks with pulm follow up (3) Community acquired pneumonia: Code(s): J18.9 - Pneumonia, unspecified organism Status: Acute Assessment and Plan: Presented with shortness of breath. CXR on presentation showed bibasilar airspace disease Chest CT with 12 mm nodule which may be related to infection vs malignancy treated with IV ceftriaxone and azithromycin. Will continue PO levaquin as an outpatient supportive care provided. Bronchodilators, expectorants incentive spirometry COVID-19 and influenza negative (4) Pulmonary nodule: Code(s): R91.1 - Solitary pulmonary nodule Status: Acute Assessment and Plan: CT of the chest showed 12 mm pulmonary nodule which may be due to infection vs malignancy recommendations for outpatient noncontrast low-dose chest CT recommended in 3 months patient will need to establish with a primary care provider for appropriate outpatient follow-up. Arranged follow up with photonics engineering technician PCP pathology of pleural fluid negative for carcinoma (5) Tobacco abuse: Code(s): Z72.0 - Tobacco use Status: Acute Assessment and Plan: Patient smokes 1 pack per day educated on smoking cessation for 5 minutes patient is motivated to quit smoking DS: Summary Hospital Course Hospital Course: Date of admission: 11/24/2021 Date of discharge: 11/27/2021 Benita Ballesteros is 61-year-old female with a history of tobacco abuse who presented to the emergency department on 11/24/21 with complaints of shortness of breath ongoing for 2 days with associated nonproductive cough. On presentation to the ED, she was mildly tachypneic with additional vital signs stable, potassium 3.3, troponin negative, CXR with bibasilar airspace disease and moderate pleural effusions, chest CT showed 12 mm pulmonary nodule which may be infection versus malignancy and moderate-sized pleural effusions. She was admitted to the hospitalist service for further evaluation and management and was seen in consultation by pulmonology. She underwent thoracentesis of the right pleural effusion with final pleural fluid studies pending. Initial findings revealed this to be an exudative pleural effusion. Initial Gram stain negative and pleural fluid cultures negative to date. Final cultures will be monitored by pulmonology and patient will follow-up as an outpatient in 3-4 weeks. She will obtain a repeat chest x-ray as
[2021-11-27 16:28] LABS: LDH Pleural Fluid 2307 U/L; Total Protein Pleural Fluid 4.7 g/dL
[2021-11-28 22:11] LABS: Glucose Pleural Fluid 16 mg/dL
[2021-12-02 14:00] LABS: Amylase, Pleural Fluid 29 U/L
== END 2021-11-27 12:03 | disposition home or self-care (01) | DRG 140 ==
LOC: ANHED 15:45 → ANH3MEDSUR 17:20
PROVIDERS: Internal Medicine Pulmonary Disease; Nurse Practitioner; Admitting Provider Chiropractor; Emergency Provider Emergency Medicine; Visit Provider Physician Assistant
DX: J43.9 Emphysema, unspecified (principal); J18.9 Pneumonia, unspecified organism; J90 Pleural effusion, not elsewhere classified; R91.1 Solitary pulmonary nodule; Z20.822 Contact with and (suspected) exposure to COVID-19; F17.210 Nicotine dependence, cigarettes, uncomplicated
CPT/HCPCS: 32555; 36415; 71045; 71046; 71250; 71275; 80048; 80053; 82042; 82150; 82945; 83605; 83615; 83735; 83880; 83986; 84157; 84311; 84443; 84478; 84484; 85025; 85027; 85380; 85610; 85730; 87015; 87040; 87070; 87075; 87102; 87116; 87205; 87206; 87804; 88108; 88184; 88305; 89051; 93005; 93306; 94618; 94640; 94762; 96365; 96367; 96374; 96375; 96376; 99285; A9270; C9803; G0378; J0456; J0696; J2920; J2930; J7512; Q9967; U0003; U0005

== ENCOUNTER 2021-12-18 13:28 | Outpatient (CLI) | payer SELFPAY ==
--- NOTE | ~2021-12-18 | XR_ITS ---
XR chest 2V DATE: 12/18/2021 14:06 INDICATION: Pleural effusion TECHNIQUE: PA and lateral views COMPARISON: 11/26/2021 CTA chest FINDINGS: Moderate bilateral pleural effusions are noted in addition to bilateral lower lung infiltra te and/or atelectasis. Heart size appears within normal limits. No pulmonary vascular congestion. No pneumothorax. Subtle opacity in the lateral right upper lobe. Osteopenia. IMPRESSION: Moderate bilateral pleural effusions and bilateral lower lung infiltrate and/or atelectas is Right upper lobe nodule again noted, better demonstrated on 11/26/2021 CT thorax Reviewed, dictated and finalized at location A. IMPRESSION: Moderate bilateral pleural effusions and bilateral lower lung infil trate and/or atelectasis Right upper lobe nodule again noted, better demonstrated on 11/26/2021 CT thorax
== END 2021-12-18 13:29 | disposition home or self-care (01) ==
PROVIDERS: Visit Provider Internal Medicine Pulmonary Disease
DX: J90 Pleural effusion, not elsewhere classified (principal)
CPT/HCPCS: 71046

== ENCOUNTER 2021-12-23 08:16 | Emergency (ER) | payer SELFPAY ==
[2021-12-23] VITALS (10 sets, daily range): BP systolic 132–166; BP diastolic 73–88; PULSE 71–87; RESP 12–27; TEMP 36.4; O2SAT 76–99
--- NOTE | ~2021-12-23 | XR_ITS ---
EXAMINATION: XR chest 2V DATE: 12/23/2021 08:53 INDICATION: Pleural effusion. Swelling of the hands and feet and legs. TECHNIQUE: Frontal and lateral views of the chest were obtained. COMPARISON: Chest 2 views 12/18/2021, chest CT 11/26/2021 FINDINGS: There are moderate-sized pleural effusions. There are airspace opacities at the lung bases. There is mild scarring at the lung apices. There is a 1 cm nodule in right upper lobe. No pneumothor ax. The heart size is normal. IMPRESSION: 1. 1 severe nodule in right lung upper lobe, which may be infection or malignancy. Noncontrast low-do se chest CT is recommended in 3 months. 2. Stable moderate-sized pleural effusions. 3. Stable airspace opacities at the lung bases, consistent with atelectasis versus pneumonia. Reviewed, dictated and finalized at location A. IMPRESSION: 1. 1 severe nodule in right lung upper lobe, which may be infection or malignan cy. Noncontrast low-dose chest CT is recommended in 3 months. 2. Stable moderate-sized pleural effusions. 3. Stable airspace opacities at the lung bases, consistent with atelectasis ericka julieta pneumonia.
--- NOTE | 2021-12-23 08:28 | ECG_ITS ---
Measurements Intervals [place] Rate: 84 P: -2 MO: 133 QRS: 24 QRSD: 84 T: 32 QT: 344 QTc: 407 Interpretive Statements SINUS RHYTHM BASELINE ARTIFACT- I, II, III, AVL NORMAL ECG COMPARED TO ECG 11/24/2021 14:27:18 NO SIGNIFICANT CHANGES Electronically Signed On 12-23-2021 8:49:28 CDT by Hill Prather D.O.
[2021-12-23 08:39] LABS: Basophils Absolute Auto 0.1 K/mm3 (0.0-0.1); Basophils Percent Auto 0.9 % (0.2-1.2); Eosinophils Absolute Auto 0.2 K/mm3 (0-0.3); Eosinophils Percent Auto 2.8 % (0-4.4); Hematocrit 34.3 % (37.0-47.0); Hemoglobin 10.9 g/dL (12.0-15.0); Immature Granulocyte Absolute 0.04 K/mm3 (0.00-0.031); Immature Granulocyte Percent A 0.6 % (0-0.5); Lymphocytes Absolute Auto 0.92 K/mm3 (0.9-3.2); Lymphocytes Percent Auto 14.3 % (18.3-44.2); Mean Corpuscular HGB Conc 31.8 g/dl (32-36); Mean Corpuscular Hemoglobin 25.8 pg (26-34); Mean Corpuscular Volume 81.3 fl (80-100); Monocytes Absolute Auto 0.6 K/mm3 (0.1-0.6); Monocytes Percent Auto 9.5 % (2.6-8.5); Neutrophils Absolute Auto 4.6 K/mm3 (1.3-6.7); Neutrophils Percent Auto 71.9 % (45.5-73.1); Platelet Count Result 404 k/mm3 (150-375); Red Blood Count 4.22 M/mm3 (4.2-5.4); Red Cell Distribution Width 14.2 % (11.5-14.5); White Blood Count 6.4 K/mm3 (4.5-10.0)
--- NOTE | 2021-12-23 08:41 | ED.GENADULT ---
HPI - General Adult General Chief complaint: Extremity Problem,Nontraumatic Stated complaint: extremity swelling Time Seen by Provider: 12/23/21 08:41 History of Present Illness HPI narrative: 61-year-old female with past medical history of COPD, tobacco abuse, pneumonia who presents for evaluation of edema in all extremities. Patient states she has noticed increased swelling in bilateral ankles and hands. Patient was recently treated for pneumonia and pulmonary edema and had a thoracentesis. She denies respiratory difficulties but is concerned about the swelling in her extremities. Patient sees a certified flex endoscope reprocessor regularly and was recently started on a diuretic. She is unsure if this has improved her symptoms. She denies chest pain, fever, sick contacts. Related Data Allergies Allergy/AdvReac Type Severity Reaction Status Date / Time No Known Allergies Allergy Verified 12/23/21 08:31 Review of Systems Review of Systems: CONSTITUTIONAL: Denies fever, chills, or sweats. EYES: Denies visual changes, redness, or discharge. ENT: Denies rhinorrhea, congestion, sore throat, or otalgia. CARDIOVASCULAR: Denies chest pain, palpitations, or edema. RESPIRATORY: Denies cough or dyspnea. GASTROINTESTINAL: Denies abdominal pain, nausea, vomiting, or diarrhea. GENITOURINARY: Denies dysuria or hematuria. SKIN: Denies rash or itching. MUSCULOSKELETAL: Denies back pain, joint pain, or myalgia. NEUROLOGIC: Denies headache, numbness, or weakness. PSYCHIATRIC: Denies anxiety or depression. [facility] Past Medical History Medical History (Updated 12/23/21 @ 12:01 by Yariel Srinivasan, ) Patient denies significant medical history Tobacco abuse Surgical History Surgical History (Updated 11/24/21 @ 16:29 by Whitney Galaviz NP) H/O tubal ligation Family History Family History Mother Hypertension Carcinoma of colon Father Acute myocardial infarction Sibling Cancer Social History Social History (Updated 11/24/21 @ 20:21 by Whitney Galaviz NP) Social History: the patient has 3 childrenc. her son lives with her. she is single and works for [employer]. she was smoking a pack per day. She does not have a living will or durable power city attorney for healthcare. She denies any alcohol marijuana or drugs. Code status full code Smoking packs per day: 1 Smoking cigarettes per day: 20.0 Smoking status: Current every day smoker Tobacco type: cigarettes Alcohol intake: never Substance use: never Spiritual care concerns: No Exam Narrative: GENERAL: Well-appearing, well-nourished, and in no acute distress. HEAD: Normocephalic, atraumatic. EYES: PERRLA and EOMI. ENT: Nares clear, no rhinorrhea or epistaxis. Mucous membranes moist. NECK: Supple. CHEST: Clear to auscultation. No respiratory distress. HEART: Regular rate and rhythm. No murmur heard. Normal peripheral pulses. ABDOMEN: Soft, nontender, nondistended, normal active bowel sounds. EXTREMITIES: Normal range of motion. No edema. SKIN: Warm, dry, no rash. NEURO: No focal deficits. Alert and oriented x3. PSYCH: Normal mood and affect. Course Vital Signs Vital signs: Vital Signs Temperature 97.6 F 12/23/21 08:21 Pulse Rate 87 12/23/21 08:21 Respiratory Rate 23 H 12/23/21 08:21 Blood Pressure 166/88 H 12/23/21 08:21 Pulse Oximetry 76 L 12/23/21 08:21 Oxygen Delivery Room Air 12/23/21 08:21 Temperature 97.6 F 12/23/21 08:21 Pulse Rate 74 12/23/21 09:20 Respiratory Rate 23 H 12/23/21 09:20 Blood Pressure 135/73 12/23/21 09:20 Pulse Oximetry 99 12/23/21 09:20 Oxygen Delivery Nasal Cannula 12/23/21 08:38 Oxygen Flow Rate 3 12/23/21 08:38 Medical Decision Making MDM Narrative Medical decision making narrative: Work-up reviewed and is quite similar to patient's previous visit. She has inform me she has an appointment with her pulmonol
[2021-12-23 08:57] LABS: Alanine Aminotransferase 15 U/L (6-35); Albumin Level 3.3 g/dL (3.5-5.1); Alkaline Phosphatase 104 U/L (38-126); Anion Gap 9 mmol/L (8-16); Aspartate Amino Transferase 18 U/L (14-36); Bilirubin,Total 0.4 mg/dL (0.2-1.3); Blood Urea Nitrogen 14 mg/dL (7-17); Calcium 8.9 mg/dL (8.4-10.2); Carbon Dioxide 25 mmol/L (22-30); Chloride 105 mmol/L (98-107); Estimated CRCL calculation 73 ml/min; Estimated Glomerular Filt Rate > 60; Glucose 112 mg/dL (65-110); Potassium 3.7 mmol/L (3.4-5.0); Sodium 139 mmol/L (137-145)
[2021-12-23 10:24] LABS: INR 1.2; Prothrombin Time 14.5 Seconds (11.1-14.7)
[2021-12-23 10:25] LABS: Partial Thromboplastin Time 36.2 SECONDS (22.3-36.8)
[2021-12-23 10:38] LABS: NT Pro B Type Natriuretic Pept 928 pg/mL (5-100); Troponin I < 0.012 ng/mL (0.000-0.034)
--- NOTE | 2021-12-23 11:45 | PC.NURSE ---
Pt requesting to leave at this time. Pt verbalized I have been here 3 hours and no one has done anything for me. This rn verified pt name and , opened chart and reviewed that we did draw blood, and did a chest xray. ERP Notified that pt is wanting to leave and will be in shortly to discuss findings with her.
== END 2021-12-23 12:15 | disposition home or self-care (01) ==
PROVIDERS: Emergency Provider Emergency Medicine
DX: J44.1 Chronic obstructive pulmonary disease with (acute) exacerbation (principal); J90 Pleural effusion, not elsewhere classified; R91.1 Solitary pulmonary nodule; R60.0 Localized edema; F17.210 Nicotine dependence, cigarettes, uncomplicated; Z79.51 Long term (current) use of inhaled steroids
CPT/HCPCS: 36415; 71046; 80053; 83880; 84484; 85025; 85610; 85730; 93005; 99284

== ENCOUNTER 2022-01-22 04:07 | Outpatient (CLI) | payer OTHER, SELFPAY ==
[2022-01-20 08:05] VITALS: BMI 28.9
--- NOTE | 2022-01-20 08:06 | PC.NURSE ---
Pre Radiology instructions Report to the Outpatient Waiting Room, entrance under the green pavilion located off [facility], at time _0830_ on date _[id number]_. Procedure Time: _1030_. YOU MAY BE MONITORED AT HOSPITAL FOR UP TO 4 HOURS AFTER YOUR PROCEDURE. One visitor will be allowed to accompany the patient into the hospital. The visitor will be instructed to remain with patient at all times or leave the building due to restrictions. We will allow the visitor to come back to the postoperative area when patient is ready. NO children visitors allowed at this time. You and your visitor will be asked to self-screen and do not enter if you have any COVID symptoms. A mask is required within the hospital. Patients are to have no food or drink 6 hours prior to procedure time Driving will be restricted after the procedure, you must have a person to drive you home. Labs will be drawn in preop area and once reviewed, you will be taken to radiology area for procedure. When the procedure is completed, you will be taken to outpatient where you will be monitored for several hours. You may have one visitor in this area. Other than holding anti-coagulants, patient may take other medication(s) as scheduled. Prior to your appointment date patients are instructed to hold anti-coagulants after discussing with ordering provider to stop. If unable to discontinue anti-coagulants please notify radiologist. No aspirin or warfarin (Coumadin) for 7 days prior to the procedure. No clopidogrel (Plavix), ticagrelor (Brilinta), prasugrel (Effient) or dabigatran (Pradaxa) for 5 days prior to the procedure. No rivaroxaban (Xarelto), apixaban (Eliquis), dipyridamole (Aggrenox or Persantine) or cilostazol (Pletal) for 2 days prior to the procedure. Medications to discontinue per physician: None Date to take last dose: Please leave all valuables, including medications, at home the day of procedure. The hospital will not accept responsibility for valuables. Wear comfortable, loose fitting clothing. Follow any additional instructions given to you from ordering provider. Telephone instructions given to __Patient___and asked if any additional questions and then verbalized understanding. Patient advised to call scheduling provider office or registration scheduling [phone] if any additional questions.
[2022-01-22] VITALS (9 sets, daily range): BP systolic 150–200; BP diastolic 69–127; PULSE 61–102; RESP 14–20; TEMP 36.4; O2SAT 96–99
--- NOTE | ~2022-01-22 | XR_ITS ---
EXAMINATION: [id number] DATE: 01/22/2022 09:20 INDICATION: Right pleural effusion status post thoracentesis. TECHNIQUE: A single frontal view of the chest was obtained. COMPARISON: Chest 2 views 12/23/2021, chest CT 11/26/2021 FINDINGS: There is mild scarring at the lung apices. There is a 1 cm nodule in right upper lobe. Ther e are moderate-sized pleural effusions. There are airspace opacities at the lung bases. IMPRESSION: 1. Stable moderate-sized pleural effusions. 2. Airspace opacities at the lung bases with improvement on the right, consistent with atelectasis ve rsus pneumonia. 3. Stable 1 cm nodule in right lung upper lobe, which may be infection or malignancy. Noncontrast riccardo st CT is recommended in one month. Reviewed, dictated and finalized at location A. IMPRESSION: 1. Stable moderate-sized pleural effusions. 2. Airspace opacities at the lung bases with improvement on the right, consiste nt with atelectasis versus pneumonia. 3. Stable 1 cm nodule in right lung upper lobe, which may be infection or malig adrien. Noncontrast chest CT is recommended in one month.
--- NOTE | ~2022-01-22 | US_ITS ---
EXAMINATION: US thoracentesis DATE: 01/22/2022 09:34 INDICATION: pleural effusion TECHNIQUE: The procedure and its risks, benefits, and alternatives were discussed with the patient. P otential risks discussed included bleeding, infection, and pneumothorax. The patient understood the r isks and agreed to proceed. The skin was prepped and draped in sterile fashion. 1% lidocaine was used for local anesthesia. Under ultrasound guidance, a 5 Fr catheter with trochar was advanced into the right pleural effusion. Fluid was aspirated. The catheter was removed, and a dressing was applied. Th ere were no immediate complications. FINDINGS: Ultrasound images demonstrate a right pleural effusion and the catheter within the fluid. The effusio n is loculated. IMPRESSION: 1. Successful ultrasound-guided thoracentesis yielding 200 mL of turbid, yellow fluid. Loculation of the effusion prevented removal of more fluid. Reviewed, dictated and finalized at location A. IMPRESSION: 1. Successful ultrasound-guided thoracentesis yielding 200 mL of turbid, yello w fluid. Loculation of the effusion prevented removal of more fluid.
--- NOTE | 2022-01-22 07:25 | SUR.PREOP ---
PER NATALIE IN XRAY, NO LABS NEEDED PER DR. SHELLEY
--- NOTE | 2022-01-22 08:49 | SUR.PREOP ---
ULTRASOUND STAFF INFORMED OF PT BLOOD PRESSURE. PT READY FOR ULTRASOUND
[2022-01-22 09:41] LABS: pH Pleural Fluid 7.086 (7.210-7.500)
[2022-01-22 10:44] LABS: Pleural fluid source Pleural fluid
[2022-01-22 10:45] LABS: Appearance Pleural Fluid Cloudy (Clear); Color Pleural Fluid Yellow (Colorless); Lymphocytes Pleural Fluid 61 %; Macrophages Pleural Fluid 2 %; Mesothelial Cells Pleural Flui 6 %; Monocytes Pleural Fluid 30 %; Neutrophils Pleural Fluid 1 % (0-25); Nucleated Cell Pleural Fluid 1475 /uL (0-1000); RBC Pleural Fluid 1381 /uL (0-0)
[2022-01-25 19:42] LABS: Glucose Pleural Fluid <10 mg/dL; LDH Pleural Fluid 5118 U/L; Total Protein Pleural Fluid 4.5 g/dL
== END 2022-01-22 11:20 | disposition home or self-care (01) ==
PROVIDERS: Referring Provider Internal Medicine Pulmonary Disease; Visit Provider Radiology Diagnostic Radiology
DX: J90 Pleural effusion, not elsewhere classified (principal); R91.8 Other nonspecific abnormal finding of lung field
CPT/HCPCS: 32555; 82945; 83615; 83986; 84157; 87015; 87070; 87075; 87102; 87116; 87205; 87206; 89051

== ENCOUNTER 2022-01-29 06:57 | Outpatient (CLI) | payer OTHER, SELFPAY ==
--- NOTE | ~2022-01-29 | CT_ITS ---
EXAMINATION: CT diagnostic chest w con DATE: 01/29/2022 07:23 INDICATION: Pleural effusions TECHNIQUE: Transaxial computed tomographic images of the chest were obtained after the administration of 75 cc of Omnipaque 350 intravenous contrast. The dose-length product (DLP) was 331.92 mGy-cm. Ite rative reconstruction was used. COMPARISON: 11/26/2021 FINDINGS: There are small pleural effusions with decrease on the left. Previously described right low er lobe airspace opacities have resolved, consistent with resolving infection/inflammation. There is a persistent 12 mm nodule of the right upper lobe. No pneumothorax is identified. No pathologically e nlarged thoracic lymph nodes are identified. The heart size is normal. There is a small sliding hiata l hernia. There is mild thoracic spondylosis. IMPRESSION: 1. Persistent right upper lobe nodule which could reflect infection or malignancy. CT-guided biopsy i s recommended. 2. Small pleural effusions with improvement on the left. 3. Resolved right lower lobe airspace opacities, consistent with resolved infection/inflammation.. Reviewed, dictated and finalized at location B. IMPRESSION: 1. Persistent right upper lobe nodule which could reflect infection or malignan cy. CT-guided biopsy is recommended. 2. Small pleural effusions with improvement on the left. 3. Resolved right lower lobe airspace opacities, consistent with resolved infec tion/inflammation..
[2022-01-29 07:21] LABS: Estimated Glomerular Filt Rate > 60
--- NOTE | 2022-02-06 16:05 | WPDPFTINT ---
PFT Procedure Performed PFT Procedure Performed Spirometry with Pre/Post Bronchodilator Plethysmography (Lung Vol) Diffusing Cap (DLCO) Flow Vol Loop PFT Interpretation DOS: 01/29/2022 REQUESTING: Dr. Durand REASON FOR TESTING: dyspnea PULMONARY FUNCTION TESTS Results are reliable and reproducible. Spirometry: pre bronchodilator FEV1 is 1.13 L, 41% predicted, severely decreased. Pre bronchodilator FEV1 is 1.87 L, 52%, moderately decreased. FEV1/ FVC ratio is 61%, decreased, consistent with airflow obstruction. after bronchodilator, there is a 5% increase in the FEV1, 1.18 L, not significant. There is a 4% decrease in the FVC. This is not significant. Lung volumes: Total lung capacity 3.38 L, 60% predicted, moderate restriction. Residual volume 1.51 L, 68%, low end of normal. RV/TLC is 45%, normal. There is no air trapping. airway resistance 225%, increased. Diffusion: DLCO 13.6 ml/min/mmHg, 59% predicted, moderately reduced. DLCO/VA is 4.75 ml/min/mmHg/L, 112% normal. Flow volume loop: There is coving of the expiratory limb consistent with airflow obstruction IMPRESSION: This study shows a severe obstructive ventilatory impairment without response to bronchodilator, moderate restrictive impairment and a moderate diffusion impairment. In the proper clinical setting, this study may be compatible with emphysema. Lack of response to bronchodilator should not preclude use if clinically indicated. Ellie Polanco MD
== END 2022-01-29 06:58 | disposition home or self-care (01) ==
PROVIDERS: Visit Provider Internal Medicine Pulmonary Disease
DX: R06.00 Dyspnea, unspecified (principal); R91.1 Solitary pulmonary nodule; J90 Pleural effusion, not elsewhere classified
CPT/HCPCS: 71260; 94060; 94726; 94729; Q9967